=== PATIENT | male | born 1955 | race African-American/Black ===

== ENCOUNTER 2020-11-06 23:14 | Emergency (ER) | payer BC | END 2020-11-07 00:32 | disposition home or self-care (01) | LOC: ERS 23:14 | DX: I10 Essential (primary) hypertension (principal); I25.2 Old myocardial infarction | CPT/HCPCS: 99283 ==

== ENCOUNTER 2021-03-19 15:24 | Outpatient (CLI) | payer BC | END 2021-03-19 15:25 | disposition home or self-care (01) | LOC: BICULT 15:24 | PROVIDERS: ATTEND Urology | DX: N28.89 Other specified disorders of kidney and ureter (principal) | CPT/HCPCS: 76856 ==

== ENCOUNTER 2021-05-23 07:30 | Outpatient (CLI) | payer BC | END 2021-05-23 07:31 | disposition home or self-care (01) | LOC: BICULT 07:30 | PROVIDERS: ATTEND Urology | DX: N28.89 Other specified disorders of kidney and ureter (principal); N13.30 Unspecified hydronephrosis; N28.1 Cyst of kidney, acquired | CPT/HCPCS: 76770 ==

== ENCOUNTER 2021-07-30 10:24 | Outpatient (CLI) | payer MEDICARE, BC | END 2021-07-30 10:25 | disposition home or self-care (01) | LOC: NM 10:24 | PROVIDERS: ATTEND Urology | DX: N28.89 Other specified disorders of kidney and ureter (principal); R93.422 Abnormal radiologic findings on diagnostic imaging of left kidney | CPT/HCPCS: 78708; A4641; A9562 ==